=== PATIENT | female | born 1965 | race Caucasian/White ===

== ENCOUNTER 2024-12-16 10:49 | Outpatient (CLI) | payer OTHER | END 2024-12-16 10:50 | disposition home or self-care (01) | LOC: RAD 10:49 | PROVIDERS: ATTEND Student in an Organized Health Care Education/Training Program | DX: R13.19 Other dysphagia (principal); R63.30 Feeding difficulties, unspecified | CPT/HCPCS: 74230 ==

== ENCOUNTER 2024-12-18 11:52 | Outpatient (CLI) | payer OTHER | END 2024-12-18 11:53 | disposition home or self-care (01) | LOC: SCSRAD 11:52 | PROVIDERS: ATTEND Student in an Organized Health Care Education/Training Program | DX: M25.562 Pain in left knee (principal); M25.552 Pain in left hip ==